=== PATIENT | male | born 1975 | race Caucasian/White ===

== ENCOUNTER 2020-11-07 13:47 | Emergency (ER) | payer SELFPAY ==
[~2020-11-07] VITALS: Ht 180.3 cm; Wt 72.7 kg
[2020-11-07] MEDS ORDERED: IV NORMAL SALINE 1,000ML 1,000 ML IV ONE ×2 (14:15→16:30)
[2020-11-07] MEDS ORDERED: ONDANSETRON PF 4 MG/2 ML VIAL. IVP ONE (14:15)
[2020-11-07] MEDS ORDERED: PIPERACILLIN/TAZOBACTAM 3.375 GM in IV NORMAL SALINE 50ML 50 ML IV ONE (14:15)
--- NOTE | 2020-11-07 14:33 | PHYS DOC ---
Past History Past Medical History: No Pertinent History Past Medical History Spina Bifida Past Surgical History multiple surgerys to feet and legs. H/O spina bifida. Smoking: Quit Greater Than 1 Year Additional Smoking Information: "I quit 20 years ago" Alcohol Use: Heavy Additional Alcohol Information: "I drink a few beers daily" Drug Use: None General Adult HPI: HPI: Patient is a 45-year-old male who presents with wound to lateral, right foot. Patient has a history of spina bifida and states that he always has a callus on the outside of his right foot. Patient states on Thursday he noticed that he had an open wound. Right foot is red, swollen, warm to the touch, purulent drainage. Patient denies health history but states that he does not have a PCP. Patient reports taking Aleve for pain at home with little relief. Patient is a daily drinker, denies smoking. Review of Systems: Review of Systems: Constitutional: Denies fever or chills Eyes: Denies change in visual acuity HENT: Denies nasal congestion or sore throat Respiratory: Denies cough or shortness of breath Cardiovascular: Denies chest pain or edema GI: Denies abdominal pain, nausea, vomiting, bloody stools or diarrhea : Denies dysuria Musculoskeletal: Denies back pain or joint pain Integument: Reports wound to right lateral foot Neurologic: Denies headache, focal weakness or sensory changes Endocrine: Denies polyuria or polydipsia Lymphatic: Denies swollen glands Psychiatric: Denies depression or anxiety Physical Exam: PE: Constitutional: Well developed, well nourished, no acute distress, non-toxic appearance. [] HENT: Normocephalic, atraumatic, bilateral external ears normal, oropharynx mo ist, no oral exudates, nose normal. [] Eyes: PERRLA, EOMI, conjunctiva normal, no discharge. [] Neck: Normal range of motion, no tenderness, supple, no stridor. [] Cardiovascular:Heart rate sinus tachycardia, no murmur [] Lungs & Thorax: Bilateral breath sounds clear to auscultation [] Abdomen: Bowel sounds normal, soft, no tenderness, no masses, no pulsatile masses. [] Skin: Open wound to right lateral foot. Red, swollen, purulent negron drainage, malodorous Back: No tenderness, no CVA tenderness. [] Extremities: Right foot pain, ROM intact, 2+ pitting edema, pulses intact Neurologic: Alert and oriented X 3, normal motor function, normal sensory function, no focal deficits noted. [] Psychologic: Affect normal, judgement normal, mood normal. [] EKG: EKG: [] Radiology/Procedures: Radiology/Procedures: []Three-view right foot HISTORY: Infection AP lateral oblique views There is a large staple in the calcaneus. There is bony deformity of the proximal fifth metatarsal with remodeling and there is bony remodeling of the proximal fourth metatarsal. There is soft tissue swelling laterally over the proximal fifth metatarsal. There is no periosteal reactions. There is no lytic destructive changes. IMPRESSION: 1. Significant soft tissue swelling laterally. 2. Bony remodeling of the proximal fifth and to lesser extent the proximal fourth metatarsal. This could be secondary to old infection. There is no lytic destructive changes to suggest acute infarction. Clinical correlation is suggested. Electronically signed by: Alton Zimmerman III, MD (11/07/2020 2:36 PM) [facility] Heart Score: Risk Factors: Risk Factors: DM, Current or recent (<one month) smoker, HTN, HLP, family history of CAD, obesity. Risk Scores: Score 0 - 3: 2.5% MACE over next 6 weeks - Discharge Home Score 4 - 6: 20.3% MACE over next 6 weeks - Admit for Clinical Observation Score 7 - 10: 72.7% MACE over next 6 weeks - Early Invasive Strategies Course & Med Decision Making: Course & Med Decision Making Pertinent Labs and Imaging studies reviewed. (See chart for details) []Patient is a 45-year-old male who presents with wound to lateral, right foot. Patient has a history of spina bifida and states that he always has a callus on the outside of his right foot. Patient states on Thursday he noticed that he had an open wound. Right foot is red, swollen, warm to the touch, purulent drainage. Patient denies health history but states that he does not have a PCP. Patient reports taking Aleve for pain at home with little relief. Patient is a daily drinker, denies smoking. Rating pain 8/10, 50mcg Fentanyl given, zofran, NS fluid bolus. Will reassess. Patient is hypertensive on arrival 184/123, Sinus Tachycardia, 120, Temp 99.3. Patient is not compliant and unsure if he has h/o HTN or Diabetes. Foot Xray shows Significant soft tissue swelling laterally. Bony remodeling of the proximal fifth and to lesser extent the proximal fourth metatarsal. This could be secondary to old infection. There is no lytic destructive changes to suggest acute infarction. Clinical correlation is suggested. Spoke with , who will accept patient at [place]. Shaunna Lemons given. Patient will most likely require MRI to rule out osteomylitis and debriedment of wound. Patient reporting pain 04/20, 50mcg Fentanyl given. Impression 1. wound infection 2. osteomylitis Divina Disclaimer: Divina Disclaimer: This electronic medical record was generated, in whole or in part, using a voice recognition dictation system. Departure Departure: Impression: Primary Impression: Infection of right foot Disposition: 05 DC/TRF OTHER TYPE INSTITUTI Condition: STABLE Referrals: PCP,RADHA (PCP) SYLVIA BLAKE APRN Nov 07, 2020 14:33
[2020-11-07 14:36] LABS: BASO # 0.1 x10^3/uL (0.0-0.2); BASO % 1 % (0-3); EOS % 0 % (0-3); HEMATOCRIT 47.4 % (39.0-53.0); HEMOGLOBIN 16.3 g/dL (13.0-17.5); LYMPH # 0.7 x10^3/uL (1.0-4.8); LYMPH % 8 % (24-48); MEAN CORPUSCULAR HEMOGLOBIN 33 pg (25-35); MEAN CORPUSCULAR HGB CONC 34 g/dL (31-37); MEAN CORPUSCULAR VOLUME 96 fL (79-100); MONO # 0.6 x10^3/uL (0.0-1.1); MONO % 7 % (0-9); NEUT # 7.4 x10^3uL (1.8-7.7); NEUT % 84 % (31-73); PLATELET COUNT 215 x10^3/uL (140-400); RED BLOOD COUNT 4.97 x10^6/uL (4.30-5.70); RED CELL DISTRIBUTION WIDTH 13.3 % (11.5-14.5); WHITE BLOOD COUNT 8.9 x10^3/uL (4.0-11.0)
--- NOTE | 2020-11-07 14:38 | RAD ---
Three-view right foot HISTORY: Infection AP lateral oblique views There is a large staple in the calcaneus. There is bony deformity of the proximal fifth metatarsal wi th remodeling and there is bony remodeling of the proximal fourth metatarsal. There is soft tissue sw elling laterally over the proximal fifth metatarsal. There is no periosteal reactions. There is no ly tic destructive changes. IMPRESSION: 1. Significant soft tissue swelling laterally. 2. Bony remodeling of the proximal fifth and to lesser extent the proximal fourth metatarsal. This co uld be secondary to old infection. There is no lytic destructive changes to suggest acute infarction. Clinical correlation is suggested. Electronically signed by: Alton Zimmerman III, MD (11/07/2020 2:36 PM) [facility]
[2020-11-07 14:46] LABS: CALCIUM 9.1 mg/dL (8.5-10.1); CREATININE 1.2 mg/dL (0.7-1.3); GFR 64.9; POTASSIUM 3.7 mmol/L (3.5-5.1)
[2020-11-07] MEDS ORDERED: PIPERACILLIN/TAZOBACTAM 3.375 GM VIAL IV ONE (14:47)
[2020-11-07] MEDS ORDERED: IV NORMAL SALINE 50ML 50 ML ONE (14:47)
[2020-11-07 14:52] LABS: ALBUMIN 3.2 g/dL (3.4-5.0); ALBUMIN/GLOBULIN RATIO 0.7 (1.0-1.7); TOTAL BILIRUBIN 0.9 mg/dL (0.2-1.0); TOTAL PROTEIN 7.6 g/dL (6.4-8.2)
[2020-11-07] MEDS ORDERED: VANCOMYCIN 1 GM in IV NORMAL SALINE 250ML 250 ML IV ONE (16:00)
[2020-11-07] MEDS ORDERED: IV NORMAL SALINE 500ML 0 ML ONE (16:02)
[2020-11-07] MEDS ORDERED: VANCOMYCIN 1 GM VIAL. ONE (16:02)
[2020-11-07] MEDS ORDERED: VANCOMYCIN 1.75 GM in IV NORMAL SALINE 500ML 500 ML IV ONE (16:30)
--- NOTE | 2020-11-07 16:59 | EKG ---
[address] [address] Test Date: 2020-11-07 Test Time: 15:09:27 Pat Name: JASWINDER FLORENCE Department: Room: Gender: M [employer]: JIAN : 1975 Requested By: SYLVIA BLAKE Order Number: [id number] Reading MD: Measurements Intervals [place] Rate: 114 P: 59 LA: 124 QRS: 38 QRSD: 88 T: 37 QT: 302 QTc: 419 Interpretive Statements SINUS TACHYCARDIA OTHERWISE NORMAL ECG RI6.02 No previous ECG available for comparison
[2020-11-07 18:11] LABS: BILIRUBIN,URINE NEG (NEG); CLARITY,URINE TURBID; COLOR,URINE YELLOW; GLUCOSE,URINE NEG (NEG)
[2020-11-07 18:12] LABS: BACTERIA,URINE MANY /HPF (0-FEW); NITRITE,URINE NEG (NEG); RBC,URINE OCC /HPF (0-2); SQUAMOUS EPITHELIAL CELL,UR OCC /LPF; WBC,URINE 20-40 /HPF (0-4)
[2020-11-07 18:35] VITALS: BP 149/113
== END 2020-11-07 19:00 | disposition short-term general hospital (02) ==
LOC: ER 13:47
DX: S91.301A Unspecified open wound, right foot, initial encounter (principal); L08.9 Local infection of the skin and subcutaneous tissue, unspecified; M86.9 Osteomyelitis, unspecified; F10.20 Alcohol dependence, uncomplicated; Z20.822 Contact with and (suspected) exposure to COVID-19; Z87.891 Personal history of nicotine dependence; Y90.9 Presence of alcohol in blood, level not specified; X58.XXXA Exposure to other specified factors, initial encounter; Y93.89 Activity, other specified; Y92.89 Other specified places as the place of occurrence of the external cause; Y99.8 Other external cause status
CPT/HCPCS: 36415; 73630; 80053; 81001; 83605; 85025; 87040; 87070; 87086; 93005; 96365; 96366; 96367; 96375; 96376; 99285; C9803; J2405; J2543; J3010; J3370; J7030; J7040; U0003

== ENCOUNTER 2021-03-15 13:25 | Emergency (ER) | payer SELFPAY ==
[~2021-03-15] VITALS: Ht 180.3 cm; Wt 80.3 kg
--- NOTE | 2021-03-15 13:57 | PHYS DOC ---
Past History Past Medical History: Other Additional Past Medical Histor: SPINA BIFIDA Past Surgical History: Other Additional Past Surgical Histo: MULTIPLE LEG SURGERIES Smoking: Quit Greater Than 1 Year Alcohol Use: Heavy Drug Use: None General Adult EDM: Chief Complaint: GROIN PAIN HPI: HPI: 46-year-old male presents with testicle swelling and right groin pain. He started to have pain 3 days ago. He feels like his right testicle is swollen or "there is something else in his scrotum." He was going inside the waistband posterior a few days ago and it was pushing on his inguinal region. The ceiling thing he can think of that might have caused this. It is very tender to palpation. He denies urethral discharge. He has urinary stress incontinence at baseline due to spina bifida. He denies any other injuries or complaints at this time. Review of Systems: Review of Systems: Constitutional: Denies fever or chills Eyes: Denies change in visual acuity HENT: Denies nasal congestion or sore throat Respiratory: Denies cough or shortness of breath Cardiovascular: Denies chest pain or edema GI: Denies abdominal pain, nausea, vomiting, bloody stools or diarrhea : Scrotal pain Musculoskeletal: Denies back pain or joint pain Integument: Denies rash Neurologic: Denies headache, focal weakness or sensory changes Endocrine: Denies polyuria or polydipsia Lymphatic: Denies swollen glands Psychiatric: Denies depression or anxiety Allergies: Allergies: Allergies Coded Allergies Type Severity Reaction Last Updated Verified No Known Drug Allergies 11/07/20 No Physical Exam: PE: Constitutional: Well developed, well nourished, no acute distress, non-toxic appearance. [] HENT: Normocephalic, atraumatic, bilateral external ears normal, oropharynx moist, no oral exudates, nose normal. [] Eyes: PERRLA, EOMI, conjunctiva normal, no discharge. [] Neck: Normal range of motion, no tenderness, supple, no stridor. [] Cardiovascular:Heart rate regular rhythm, no murmur [] Lungs & Thorax: Bilateral breath sounds clear to auscultation [] Abdomen: Bowel sounds normal, soft, no tenderness, no masses, no pulsatile masses. [] Skin: Warm, dry, no erythema, no rash. [] Back: No tenderness, no CVA tenderness. [] Extremities: No tenderness, no cyanosis, no clubbing, ROM intact, no edema. [] Neurologic: Alert and oriented X 3, normal motor function, normal sensory function, no focal deficits noted. [] Psychologic: Affect normal, judgement normal, mood normal. : Circumcised, no obvious lesions or rash. Scrotal swelling with tenderness, difficult to isolate left and right testicle. [] Current Patient Data: Vital Signs: Vital Signs Date Time Temp Pulse Resp B/P (MAP) Pulse Ox O2 Delivery O2 Flow Rate FiO2 03/15/21 13:25 97.7 98 18 151/113 (126) 98 Room Air EKG: EKG: [] Radiology/Procedures: Radiology/Procedures: [] Impressions: PQRS Compliance Statement: One or more of the following individualized dose reduction techniques were utilized for this examination: 1. Automated exposure control 2. Adjustment of the mA and/or kV according to patient size 3. Use of iterative reconstruction technique CT abdomen/pelvis with contrast 03/15/2021 1:56 PM INDICATION: Groin pain, concern for hernia COMPARISON: None available TECHNIQUE: Multiple axial CT images of the abdomen and pelvis were obtained after the intravenous administration of 75 mL Isovue-370. Coronal and sagittal reformats are provided. FINDINGS: Lung bases are clear. Heart size within normal limits. Liver, spleen, adrenal glands, pancreas and gallbladder are normal in appearance. Abdominal aorta is normal in course and caliber. No pathologically enlarged lymph nodes identified in abdomen and pelvis. There is a right external iliac lymph node measuring 11 mm (series 2, image 82). No free fluid or free intraperitoneal air. There is mild cortical irregularity of the left kidney predominantly involving the inferior pole which may represent sequela prior infectious/ischemic insult. There is a simple cyst in the superior pole of left kidney medially measuring 10 mm. No hydronephrosis. No suspicious renal mass. Lobulated contour of the urinary bladder with multiple bladder diverticula. Prostate and seminal vesicles are normal in appearance. Moderate amount stool is noted within the rectum small to moderate stool burden throughout the colon. Small and large bowel are normal in caliber. There is no evidence for bowel obstruction. There are no pericolonic inflammatory changes. A normal, nondilated appendix is visualized without adjacent inflammatory change s. Small fat-containing right inguinal hernia. There is scrotal edema without subcutaneous gas. No suspicious osseous abnormality is identified. IMPRESSION: There is scrotal edema without subcutaneous gas. Further evaluation with ultrasound of scrotum could be of benefit. Small fat-containing right middle hernia. No findings to suggest strangulation. Right external iliac lymph node measures 11 mm short axis, likely reactive. Electronically signed by: Eduardo Bar MD (03/15/2021 2:57 PM) [id number] DICTATED AND SIGNED BY: EDUARDO BAR MD DATE: 03/15/21 1453 CC: BRADLY GONZALEZ DO; PCP,NO ~MTH0 0 US TESTICULAR History: Reason: RT TESTICULAR PAIN AND SWELLING X 3 DAYS / Spl. Instructions: / History: Comparison: CT March 15, 2021 Technique: Multiple grayscale, color flow Doppler and Doppler spectral analysis images of the scrotum are obtained. Findings: Right testicle measures 3.8 x 3.0 x 2.2 cm. Right testicle demonstrates normal parenchymal echogenicity. Enlarged right epididymis with increased vascularity. Left testicle measures 4.0 x 2.6 x 2.8 cm. Left testicle demonstrates normal parenchymal echogenicity. Left epididymis is unremarkable. Small right hydrocele. No varicocele. No scrotal hyperemia or swelling. Doppler imaging demonstrates normal flow to both testicles, without evidence of torsion. IMPRESSION: 1. Enlarged right epididymis with increased vascularity, concerning for epididymitis. 2. Small right hydrocele. Electronically signed by: Ghanshyam Natarajan DO (03/15/2021 3:02 PM) [facility] DICTATED AND SIGNED BY: GHANSHYAM NATARAJAN DO DATE: 03/15/21 6713 CC: BRADLY GONZALEZ DO; PCP,NO ~MTH0 0 Heart Score: C/O Chest Pain: N/A Risk Factors: Risk Factors: DM, Current or recent (<one month) smoker, HTN, HLP, family history of CAD, obesity. Risk Scores: Score 0 - 3: 2.5% MACE over next 6 weeks - Discharge Home Score 4 - 6: 20.3% MACE over next 6 weeks - Admit for Clinical Observation Score 7 - 10: 72.7% MACE over next 6 weeks - Early Invasive Strategies Course & Med Decision Making: Course & Med Decision Making Pertinent Labs and Imaging studies reviewed. (See chart for details) The patient appears to have epididymitis. I will treat him with a gram of Rocephin in the ED, 1 gram of azithromycin PO and discharge him with a prescription for levofloxacin for 10 days. [] Dragon Disclaimer: Divina Disclaimer: This electronic medical record was generated, in whole or in part, using a voice recognition dictation system. Departure Departure: Impression: Primary Impression: Epididymitis Disposition: HOME / SELF CARE / HOMELESS Condition: STABLE Referrals: PCP,NO (PCP) Patient Instructions: Epididymitis Scripts Levofloxacin (LEVOFLOXACIN) 500 Mg Tablet 1 TAB PO DAILY for infection, #10 TAB Prov: BRADLY GONZALEZ DO 03/15/21 BRADLY GONZALEZ DO Mar 15, 2021 13:56
[2021-03-15] MEDS: IV NORMAL SALINE 1,000ML 1,000 ML IV ONE (14:04)
[2021-03-15] MEDS: ONDANSETRON PF 4 MG/2 ML VIAL. IVP ONE (14:04)
[2021-03-15] MEDS: MORPHINE SULFATE 4 MG/ML DISP.SYRIN. IV ONE (14:05)
[2021-03-15] MEDS: IOHEXOL 300 MG/ML 75 ML VIAL. IV ONE (14:11)
[2021-03-15] MEDS ORDERED: CONTRAST GIVEN. MC PRN (14:15)
[2021-03-15 14:20] LABS: HEMATOCRIT 49.1 % (39.0-53.0); HEMOGLOBIN 17.2 g/dL (13.0-17.5); RED CELL DISTRIBUTION WIDTH 12.9 % (11.5-14.5); WHITE BLOOD COUNT 9.3 x10^3/uL (4.0-11.0)
[2021-03-15 14:28] LABS: CALCIUM 8.7 mg/dL (8.5-10.1); CREATININE 1.1 mg/dL (0.7-1.3); GFR 71.4; POTASSIUM 3.9 mmol/L (3.5-5.1)
[2021-03-15 14:33] LABS: BACTERIA,URINE MANY /HPF (0-FEW); BILIRUBIN,URINE NEG (NEG); CLARITY,URINE CLOUDY; COLOR,URINE YELLOW; GLUCOSE,URINE NEG (NEG); NITRITE,URINE POS (NEG); RBC,URINE 0 /HPF (0-2); SQUAMOUS EPITHELIAL CELL,UR FEW /LPF; WBC,URINE >40 /HPF (0-4)
[2021-03-15 14:34] LABS: ALBUMIN 3.6 g/dL (3.4-5.0); ALBUMIN/GLOBULIN RATIO 1.1 (1.0-1.7); TOTAL BILIRUBIN 1.2 mg/dL (0.2-1.0)
--- NOTE | 2021-03-15 14:59 | RAD ---
PQRS Compliance Statement: One or more of the following individualized dose reduction techniques were utilized for this examinat ion: 1. Automated exposure control 2. Adjustment of the mA and/or kV according to patient size 3. Use of iterative reconstruction technique CT abdomen/pelvis with contrast 03/15/2021 1:56 PM INDICATION: Groin pain, concern for hernia COMPARISON: None available TECHNIQUE: Multiple axial CT images of the abdomen and pelvis were obtained after the intravenous adm inistration of 75 mL Isovue-370. Coronal and sagittal reformats are provided. FINDINGS: Lung bases are clear. Heart size within normal limits. Liver, spleen, adrenal glands, pancreas and ga llbladder are normal in appearance. Abdominal aorta is normal in course and caliber. No pathologicall y enlarged lymph nodes identified in abdomen and pelvis. There is a right external iliac lymph node m easuring 11 mm (series 2, image 82). No free fluid or free intraperitoneal air. There is mild cortical irregularity of the left kidney predominantly involving the inferior pole whic h may represent sequela prior infectious/ischemic insult. There is a simple cyst in the superior pole of left kidney medially measuring 10 mm. No hydronephrosis. No suspicious renal mass. Lobulated cont our of the urinary bladder with multiple bladder diverticula. Prostate and seminal vesicles are alexus l in appearance. Moderate amount stool is noted within the rectum small to moderate stool burden throughout the colon. Small and large bowel are normal in caliber. There is no evidence for bowel obstruction. There are n o pericolonic inflammatory changes. A normal, nondilated appendix is visualized without adjacent infl ammatory changes. Small fat-containing right inguinal hernia. There is scrotal edema without subcutan eous gas. No suspicious osseous abnormality is identified. IMPRESSION: There is scrotal edema without subcutaneous gas. Further evaluation with ultrasound of scrotum could be of benefit. Small fat-containing right middle hernia. No findings to suggest strangulation. Right external iliac lymph node measures 11 mm short axis, likely reactive. Electronically signed by: Priscila Dang MD (03/15/2021 2:57 PM) [id number]
--- NOTE | 2021-03-15 15:04 | RAD ---
US TESTICULAR History: Reason: RT TESTICULAR PAIN AND SWELLING X 3 DAYS / Spl. Instructions: / History: Comparison: CT March 15, 2021 Technique: Multiple grayscale, color flow Doppler and Doppler spectral analysis images of the scrotum are obtained. Findings: Right testicle measures 3.8 x 3.0 x 2.2 cm. Right testicle demonstrates normal parenchymal echogenic ity. Enlarged right epididymis with increased vascularity. Left testicle measures 4.0 x 2.6 x 2.8 cm. Left testicle demonstrates normal parenchymal echogenici ty. Left epididymis is unremarkable. Small right hydrocele. No varicocele. No scrotal hyperemia or swelling. Doppler imaging demonstrates normal flow to both testicles, without evidence of torsion. IMPRESSION: 1. Enlarged right epididymis with increased vascularity, concerning for epididymitis. 2. Small right hydrocele. Electronically signed by: Ghanshyam Natarajan DO (03/15/2021 3:02 PM) [facility]
[2021-03-15] MEDS ORDERED: LEVO500T8 PO (15:15)
[2021-03-15] MEDS ORDERED: IV NORMAL SALINE 50ML 50 ML ONE (15:17)
[2021-03-15] MEDS ORDERED: cefTRIAXone SODIUM 1 GM VIAL ONE (15:17)
[2021-03-15] MEDS: AZITHROMYCIN 250 MG TABLET. PO ONE (15:19)
[2021-03-15 15:30] VITALS: BP 143/89
== END 2021-03-15 15:30 | disposition home or self-care (01) ==
LOC: ER 13:25
DX: N45.1 Epididymitis (principal); Z87.891 Personal history of nicotine dependence
CPT/HCPCS: 36415; 74177; 76870; 80053; 81001; 85027; 87086; 96361; 96374; 96375; 99285; J0696; J2270; J2405; J7030; Q9967

== ENCOUNTER 2021-04-25 13:37 | Emergency (ER) | payer SELFPAY ==
[~2021-04-25] VITALS: Ht 180.3 cm; Wt 78.6 kg
[~2021-04-25 13:37] MED LIST: LEVO500T8 PO
--- NOTE | 2021-04-25 14:15 | PHYS DOC ---
Past History Past Medical History: Other Additional Past Medical Histor: SPINA BIFIDA, wound infection right foot (SYLVIA BLAKE APRN) Past Surgical History: Other Additional Past Surgical Histo: MULTIPLE LEG SURGERIES, right foot debriedment (SYLVIA BLAKE APRN) Smoking: Quit Greater Than 1 Year Alcohol Use: None Drug Use: None (SYLVIA BLAKE APRN) General Adult EDM: Chief Complaint: FOOT INJURY PAIN HPI: HPI: Patient is a 45-year-old male who presents with wound to lateral, right foot. Patient has a history of spina bifida and states that he always has a callus on the outside of his right foot. Patient noticed drainage from the wound 3 days ago. Right foot is callused and peeling with eschar in the center of the wound. Purulent drainage. Patient recently got new orthopedic shoes and is concerned that the shoes are rubbing against his foot and causing the wound. Afebrile. Patient denies health history but states that he does not have a PCP. Patient reports taking Aleve for pain at home with little relief. Patient is a daily drinker, denies smoking. (SYLVIA BLAKE APRN) Review of Systems: Review of Systems: Constitutional: Denies fever or chills Eyes: Denies change in visual acuity HENT: Denies nasal congestion or sore throat Respiratory: Denies cough or shortness of breath Cardiovascular: Denies chest pain or edema GI: Denies abdominal pain, nausea, vomiting, bloody stools or diarrhea : Denies dysuria Musculoskeletal: Denies back pain or joint pain Integument: Wound to lateral side right foot, purulent drainage and eschar in the center of the wound Neurologic: Denies headache, focal weakness or sensory changes Endocrine: Denies polyuria or polydipsia Lymphatic: Denies swollen glands Psychiatric: Denies depression or anxiety (SYLVIA BLAKE APRN) Allergies: Allergies: Allergies Coded Allergies Type Severity Reaction Last Updated Verified No Known Drug Allergies 11/07/20 No (SYLVIA BLAKE APRN) Physical Exam: PE: Constitutional: Well developed, well nourished, no acute distress, non-toxic appearance. [] HENT: Normocephalic, atraumatic, bilateral external ears normal, oropharynx moist, no oral exudates, nose normal. [] Eyes: PERRLA, EOMI, conjunctiva normal, no discharge. [] Neck: Normal range of motion, no tenderness, supple, no stridor. [] Cardiovascular:Heart rate regular rhythm, no murmur [] Lungs & Thorax: Bilateral breath sounds clear to auscultation [] Abdomen: Bowel sounds normal, soft, no tenderness, no masses, no pulsatile masses. [] Skin: Warm, wound is peeling and eschar noted in the center of the wound Back: No tenderness, no CVA tenderness. [] Extremities: Right foot tenderness, no cyanosis, no clubbing, ROM intact, no edema. [] Neurologic: Alert and oriented X 3, normal motor function, normal sensory function, no focal deficits noted. [] Psychologic: Affect normal, judgement normal, mood normal. [] (SYLVIA BLAKE APRN) Current Patient Data: Vital Signs: Vital Signs Date Time Temp Pulse Resp B/P (MAP) Pulse Ox O2 Delivery O2 Flow Rate FiO2 04/25/21 13:50 98.3 75 16 172/114 98 (SYLVIA BLAKE APRN) EKG: EKG: [] (SYLVAI BLAKE APRN) Radiology/Procedures: Radiology/Procedures: []EXAMINATION: XR FOOT_RIGHT 3 VIEWS CLINICAL HISTORY: Wound infection lateral facet TECHNIQUE: XR FOOT_RIGHT 3 VIEWS Number of Images/Views: 3 COMPARISON: 11/07/2020 FINDINGS: Redemonstration of soft tissue ulcer along the lateral plantar aspect of the midfoot at the level of the proximal fifth metatarsal with decreased soft tissue swelling but increased subcutaneous emphysema. Similar-appearing reactive changes in the subjacent fifth and possibly fourth metatarsals, possibly related to chronic/remote osteomyelitis. Questionable mild acute periosteal reaction along the plantar aspect of the fifth metatarsal base on the oblique view. No focal osteopenia or new osseous destructive changes. IMPRESSION: Soft tissue changes along the lateral plantar aspect of the midfoot with questionable slight acute periosteal reaction superimposed on chronic bony changes in the fifth metatarsal as described. If concerned for acute osteomyelitis, nonemergent MRI could be obtained for further evaluation and if there is concern for soft tissue abscess/cellulitis, intravenous contrast is recommended. Electronically signed by: Etienne Panda DO (04/25/2021 3:46 PM) [id number] (SYLVIA BLAKE APRN) Heart Score: C/O Chest Pain: No Risk Factors: Risk Factors: DM, Current or recent (<one month) smoker, HTN, HLP, family history of CAD, obesity. Risk Scores: Score 0 - 3: 2.5% MACE over next 6 weeks - Discharge Home Score 4 - 6: 20.3% MACE over next 6 weeks - Admit for Clinical Observation Score 7 - 10: 72.7% MACE over next 6 weeks - Early Invasive Strategies (SYLVIA BLAKE APRN) Course & Med Decision Making: Course & Med Decision Making Pertinent Labs and Imaging studies reviewed. (See chart for details) [] 45-year-old male presents with a wound to the lateral part of right foot. Patient has a history of spina bifida. Patient always has a callus on the outside of his foot. 6 months ago patient had to be admitted to have wound care for right foot. Wound is callused and appears to be peeling. Eschar noted in the center of the wound. Pedal pulses intact. Cap refill less than 2 seconds. Patient has full range of motion and sensation intact. Afebrile. Hemodynamically stable. Foot x-ray shows Soft tissue changes along the lateral plantar aspect of the midfoot. I explained to patient that he will need to follow-up. Patient does not have a PCP. Patient was given phone number for Dr. Haylee Denise. Directed patient to call tomorrow. No indication for antibiotics at this time. Educated patient on return precautions. Patient reports he understands and is appreciative. (SYLVIA BLAKE APRN) Dragon Disclaimer: Dragon Disclaimer: This electronic medical record was generated, in whole or in part, using a voice recognition dictation system. (SYLVIA BLAKE APRN) Attending Co-Sign The patient was seen and interviewed as well as examined at the bedside. The chart was reviewed. The case was discussed. Agree with the plan of care. (BRADLY GONZALEZ DO) Departure Departure: Impression: Primary Impression: Wound of foot Disposition: 01 HOME / SELF CARE / HOMELESS Condition: STABLE Referrals: PCP,RADHA (PCP) Patient Instructions: Wound Care, [id number] Additional Instructions: You are seen in the emergency room for a wound to your right foot. I would like you to follow-up with Haylee Denise for further wound care. You also need to speak with her about getting on some blood pressure medication and establishing a relationship for PCP. Please call her and try and set up an appointment for tomorrow.[phone]. All of your labs are unremarkable. Continue taking ibuprofen or Tylenol for discomfort. Return to the emergency room if you have worsening pain, redness, fever. EMERGENCY DEPARTMENT GENERAL DISCHARGE INSTRUCTIONS Thank you for coming to [facility] (ED) today and trusting us with you care. We trust that you had a positivie experience in our Emergency Department. If you wish to speak to the department management, you may call the director at [phone]. YOUR FOLLOW UP INSTRUCTIONS ARE FOLLOWS: 1. Do you have a private Doctor? If you do not have a private doctor, please ask for a resource list of physicians or clinics that may be able to assist you with follow up care. 2. The Emergency Physician has interpreted your x-rays. The X-Ray specialist will also review them. If there is a change in the findings, you will be notified in 48 hours when at all possible. 3. A lab test or culture has been done, your results will be reviewed and you will be notified if you need a change in treatment. ADDITIONAL INSTRUCTIONS AND INFORMATION: 1. Your care today has been supervised by a physician who is specially trained in emergency care. Many problems require more than one evaluation for a complete diagnosis and treatment. We recommend that you schedule your follow up appointment as recommended to ensure complete treatment of you illness or injury. If you are unable to obtain follow up care and continue to have a problem, or if your condition worsens, we recommend that you return to the ED. 2. We are not able to safely determine your condition over the phone nor are we able to give sound medical advice over the phone. For these safety reasons, if you call for medical advice we will ask you to come to the ED for further evaluation. 3. If you have any questions regarding these discharge instructions please call the ED at [phone]. SAFETY INFORMATION: In the interest of safety, wellness, and injury prevention; we encourage you to wear your sealbelt, if you smoke; quite smoking, and we encourage family to use a protective helmet for bicycling and other sporting events that present an increased risk for head injury. IF YOUR SYMPTOMS WORSEN OR NEW SYMPTOMS DEVELOP, OR YOU HAVE CONCERNS ABOUT YOUR CONDITION; OR IF YOUR CONDITION WORSENS WHILE YOU ARE WAITING FOR YOUR FOLLOW UP APPOINTMENT; EITHER CONTACT YOUR PRIMARY CARE DOCTOR, THE PHYSICIAN WHOSE NAME AND NUMBER YOU WERE GIVEN, OR RETURN TO THE ED IMMEDIATELY. SYLVIA BLAKE APRN Apr 25, 2021 14:15 BRADLY GONZALEZ DO Apr 26, 2021 06:25
[2021-04-25 15:18] LABS: BASO % 1 % (0-3); EOS # 0.1 x10^3/uL (0.0-0.7); EOS % 2 % (0-3); HEMATOCRIT 47.4 % (39.0-53.0); HEMOGLOBIN 16.4 g/dL (13.0-17.5); LYMPH # 1.2 x10^3/uL (1.0-4.8); LYMPH % 21 % (24-48); MEAN CORPUSCULAR HEMOGLOBIN 34 pg (25-35); MEAN CORPUSCULAR HGB CONC 35 g/dL (31-37); MEAN CORPUSCULAR VOLUME 97 fL (79-100); MONO # 0.3 x10^3/uL (0.0-1.1); MONO % 6 % (0-9); NEUT # 4.1 x10^3uL (1.8-7.7); NEUT % 71 % (31-73); PLATELET COUNT 209 x10^3/uL (140-400); RED BLOOD COUNT 4.89 x10^6/uL (4.30-5.70); RED CELL DISTRIBUTION WIDTH 12.4 % (11.5-14.5); WHITE BLOOD COUNT 5.8 x10^3/uL (4.0-11.0)
[2021-04-25 15:20] LABS: CALCIUM 8.7 mg/dL (8.5-10.1); GFR 79.8; POTASSIUM 3.9 mmol/L (3.5-5.1)
--- NOTE | 2021-04-25 15:48 | RAD ---
EXAMINATION: XR FOOT_RIGHT 3 VIEWS CLINICAL HISTORY: Wound infection lateral facet TECHNIQUE: XR FOOT_RIGHT 3 VIEWS Number of Images/Views: 3 COMPARISON: 11/07/2020 FINDINGS: Redemonstration of soft tissue ulcer along the lateral plantar aspect of the midfoot at the level of the proximal fifth metatarsal with decreased soft tissue swelling but increased subcutaneous emphysem a. Similar-appearing reactive changes in the subjacent fifth and possibly fourth metatarsals, possibl y related to chronic/remote osteomyelitis. Questionable mild acute periosteal reaction along the plan tar aspect of the fifth metatarsal base on the oblique view. No focal osteopenia or new osseous destr uctive changes. IMPRESSION: Soft tissue changes along the lateral plantar aspect of the midfoot with questionable slight acute pe riosteal reaction superimposed on chronic bony changes in the fifth metatarsal as described. If muriel rned for acute osteomyelitis, nonemergent MRI could be obtained for further evaluation and if there i s concern for soft tissue abscess/cellulitis, intravenous contrast is recommended. Electronically signed by: Etienne Panda DO (04/25/2021 3:46 PM) [id number]
[2021-04-25 16:15] VITALS: BP 173/93
== END 2021-04-25 16:20 | disposition home or self-care (01) ==
LOC: ER 13:37
DX: S91.301A Unspecified open wound, right foot, initial encounter (principal); Z87.891 Personal history of nicotine dependence; X58.XXXA Exposure to other specified factors, initial encounter; Y93.89 Activity, other specified; Y92.89 Other specified places as the place of occurrence of the external cause; Y99.8 Other external cause status
CPT/HCPCS: 36415; 73630; 80048; 85025; 99284